=== PATIENT | female | born 1995 | race Caucasian/White ===

== ENCOUNTER → 2025-02-16 08:48 | Outpatient (REF) | payer OTHER, SELFPAY | LOC: PNTC 08:48 | PROVIDERS: ATTENDING PHYSICIAN Student in an Organized Health Care Education/Training Program | DX: Q79.60 Ehlers-Danlos syndrome, unspecified (principal) | CPT/HCPCS: 76805 ==

== ENCOUNTER → 2025-03-16 07:54 | Outpatient (REF) | payer OTHER, SELFPAY | LOC: PNTC 07:54 | PROVIDERS: ATTENDING PHYSICIAN Student in an Organized Health Care Education/Training Program | DX: Z36.8A Encounter for antenatal screening for other genetic defects (principal); Q79.60 Ehlers-Danlos syndrome, unspecified; Z3A.20 20 weeks gestation of pregnancy | CPT/HCPCS: 76811; 76817 ==

== ENCOUNTER 2025-06-30 13:12 | Observation (INO) | payer OTHER, SELFPAY ==
[2025-06-30 13:44] VITALS: BP 115/73; BMI 35.3
== END 2025-06-30 15:09 | disposition home or self-care (01) ==
LOC: LDRP 13:12
PROVIDERS: ADMITTING PHYSICIAN Obstetrics & Gynecology
DX: O47.03 False labor before 37 completed weeks of gestation, third trimester (principal); R10.9 Unspecified abdominal pain; O99.343 Other mental disorders complicating pregnancy, third trimester; F41.9 Anxiety disorder, unspecified; Z3A.35 35 weeks gestation of pregnancy; Z88.0 Allergy status to penicillin; Z88.2 Allergy status to sulfonamides; Z88.1 Allergy status to other antibiotic agents; Z91.040 Latex allergy status; R35.0 Frequency of micturition
CPT/HCPCS: 59899; G0378